=== PATIENT | male | born 1950 | race Caucasian/White ===

== ENCOUNTER → 2024-07-19 12:22 | Outpatient (REF) | payer OTHER, SELFPAY | LOC: HWRCS 12:22 | PROVIDERS: ATTENDING PHYSICIAN Internal Medicine Cardiovascular Disease; FAMILY PHYSICIAN Family Medicine | DX: Z95.5 Presence of coronary angioplasty implant and graft (principal); I25.10 Atherosclerotic heart disease of native coronary artery without angina pectoris | CPT/HCPCS: 93306 ==

== ENCOUNTER → 2024-10-18 11:15 | Outpatient (REF) | payer OTHER, SELFPAY | LOC: RAD 11:15 | PROVIDERS: ATTENDING PHYSICIAN Family Medicine | DX: K43.2 Incisional hernia without obstruction or gangrene (principal) | CPT/HCPCS: 76700 ==

== ENCOUNTER 2024-11-06 12:55 | Outpatient (RCR) | payer OTHER, SELFPAY | END 2024-11-06 23:59 | disposition home or self-care (01) | LOC: RPT 12:55 | PROVIDERS: ATTENDING PHYSICIAN Family Medicine | DX: M25.511 Pain in right shoulder (principal); M54.12 Radiculopathy, cervical region; Z73.6 Limitation of activities due to disability; M62.81 Muscle weakness (generalized); M79.601 Pain in right arm; G89.29 Other chronic pain | CPT/HCPCS: 97010; 97110; 97140; 97162; 97535 ==

== ENCOUNTER 2024-11-25 13:05 | Outpatient (RCR) | payer OTHER, SELFPAY | END 2024-11-25 23:59 | disposition home or self-care (01) | LOC: RPT 13:05 | PROVIDERS: ATTENDING PHYSICIAN Family Medicine | DX: M25.511 Pain in right shoulder (principal); M54.12 Radiculopathy, cervical region; Z73.6 Limitation of activities due to disability; M62.81 Muscle weakness (generalized); M79.601 Pain in right arm; G89.29 Other chronic pain | CPT/HCPCS: 97010; 97110; 97140 ==

== ENCOUNTER → 2024-12-27 09:01 | Outpatient (REF) | payer OTHER, SELFPAY ==
[2024-12-27 09:54] LABS: % Basophils 1.1 % (0-2); % Eosinophils 5.2 % (0-6); % Immature Granulocytes 0.7 % (0-0.5); % Monocytes 8.9 % (1.7-9.3); % Neutrophils 62.1 % (42.2-75.2); Absolute Basophils 0.1 10^3/uL (0-0.2); Absolute Eosinophils 0.2 10^3/uL (0-0.7); Absolute Monocytes 0.4 10^3/uL (0.1-0.6); Absolute Neutrophils 2.9 10^3/uL (1.4-6.5); Hematocrit 44.4 % (39.0-52.0); Hemoglobin 14.6 g/dL (13.0-18.0); Mean Corp Hgb Conc. 32.9 g/dL (33.0-37.0); Mean Corpuscular Hgb 29.4 pg (27.0-31.0); Mean Corpuscular Volume 89.3 fL (80.0-94.0); Mean Platelet Volume 9.5 fL (7.4-10.4); Nucleated Red Blood Cells % 0 % (-); Platelet Count 190 10^3/uL (130-400); Red Blood Cell Count 4.97 10^6/uL (4.70-6.10); Red Cell Dist. Width 13.4 % (11.5-14.5); White Blood Cell Count 4.6 10^3/uL (4.8-10.8)
[2024-12-27 10:21] LABS: Blood Urea Nitrogen 23 mg/dl (9-20); Calcium 9.7 mg/dl (8.4-10.2); Carbon Dioxide 24 mmol/L (22-30); Chloride 110 mmol/L (98-107); Glucose 161 mg/dl (70-99); Potassium 4.8 mmol/L (3.5-5.1); Sodium 144 mmol/L (135-145); eGFR > 60.00
== END ==
LOC: REG 09:01
PROVIDERS: ATTENDING PHYSICIAN Surgery; FAMILY PHYSICIAN Family Medicine
DX: K43.2 Incisional hernia without obstruction or gangrene (principal); Z01.812 Encounter for preprocedural laboratory examination
CPT/HCPCS: 36415; 80048; 85025

== ENCOUNTER → 2024-12-31 12:46 | Outpatient (REF) | payer OTHER, SELFPAY | LOC: RAD 12:46 | PROVIDERS: ATTENDING PHYSICIAN Surgery; FAMILY PHYSICIAN Family Medicine | DX: K43.2 Incisional hernia without obstruction or gangrene (principal) | CPT/HCPCS: 74177; Q9967 ==

== ENCOUNTER 2025-01-24 06:33 | Day surgery (SDC) | payer OTHER, SELFPAY ==
[2025-01-06 14:05] VITALS: BMI 24.2
--- NOTE | 2025-01-06 16:03 | PTCARENOTE ---
Abnormal ECG done 01/06/[address] Deleon, no further intervention requested.
[2025-01-24] VITALS (14 sets, daily range): BP systolic 130–163; BP diastolic 62–83; BMI 24.2
[2025-01-24 11:54] LABS: Glucose - Point of Care 191 mg/dl (70-99)
[2025-01-24] MEDS: TYLENOL 1000 MG PO (12:06)
[2025-01-24] MEDS: NORMOSOL-R/PLASMALYTE-A 1000 IV ×2 (12:06→21:22)
[2025-01-24 14:08] LABS: Glucose - Point of Care 148 mg/dl (70-99)
--- NOTE | 2025-01-24 16:47 | W.IMMPOSTOP ---
Surgical Immed Post Op Note
-
Primary Surgeon: Lucretia
Assisting Surgeon: NASREEN Pérez
Pre-op Diagnosis: Ventral incisional hernia
Post-op Diagnosis: Ventral incisional hernia
Procedure Performed: Robotic ventral incisional hernia repair with mesh, lysis of adhesions
Anesthesia Type: General
Specimen / Cultures: None
Estimated Blood Loss: 3 cc
Complications: None
Operative Findings:
1. 4 cm incisional hernia at ostomy site, omental adhesions lysed to clear defect
2. Primary closure with #1 PDS Stratafix symmetric
3. Lateral pre-peritoneal pocket providing 50% coverage of mesh
4. [address] IPOM mesh, secured with 2-0 PDS Stratafix
[2025-01-24 16:54] LABS: Glucose - Point of Care 181 mg/dl (70-99)
[2025-01-24] MEDS: MORPHINE SULFATE 1 MG IV (18:23)
[2025-01-24] MEDS: TYLENOL 650 MG PO (21:21)
[2025-01-24] MEDS: COREG 12.5 MG PO (21:21)
[2025-01-24 22:29] LABS: Glucose - Point of Care 272 mg/dl (70-99)
[2025-01-25] MEDS: TYLENOL PO ×2 (00:15→04:50)
[2025-01-25 03:04] VITALS: BP 138/76
[2025-01-25] MEDS: TORADOL 10 MG IV (05:22)
[2025-01-25 06:48] LABS: Hematocrit 39.6 % (39.0-52.0); Hemoglobin 13.7 g/dL (13.0-18.0); Mean Corp Hgb Conc. 34.6 g/dL (33.0-37.0); Mean Corpuscular Volume 86.7 fL (80.0-94.0); Platelet Count 157 10^3/uL (130-400); Red Cell Dist. Width 13.2 % (11.5-14.5)
[2025-01-25 07:25] VITALS: BP 125/69
[2025-01-25 07:51] LABS: Blood Urea Nitrogen 28 mg/dl (9-20); Calcium 8.4 mg/dl (8.4-10.2); Carbon Dioxide 19 mmol/L (22-30); Chloride 105 mmol/L (98-107); Estimated Creatinine Clearance 68 ml/min; Glucose 330 mg/dl (70-99); Potassium 4.6 mmol/L (3.5-5.1); Sodium 136 mmol/L (135-145); eGFR > 60.00
[2025-01-25 08:00] LABS: Glucose - Point of Care 338 mg/dl (70-99)
[2025-01-25] MEDS: NORMOSOL-R/PLASMALYTE-A 1000 IV (08:27)
[2025-01-25] MEDS: COREG 12.5 MG PO (08:27)
[2025-01-25] MEDS: ZESTRIL 20 MG PO (08:27)
[2025-01-25] MEDS: NOVOLOG FLEXPEN-MODERATE RESISTANCE 7 UNITS SC (08:28)
[2025-01-25] MEDS: TYLENOL 650 MG PO ×2 (08:28→12:07)
[2025-01-25] MEDS: PAXIL 20 MG PO (08:28)
[2025-01-25] MEDS: CRESTOR 20 MG PO (08:28)
[2025-01-25 08:51] LABS: Glycohemoglobin (HgbA1c) 7.4 % (4.0-5.6)
[2025-01-25] MEDS: LANTUS 0.8 UNITS SC (10:04)
[2025-01-25 11:25] VITALS: BP 121/66
[2025-01-25 12:01] LABS: Glucose - Point of Care 281 mg/dl (70-99)
[2025-01-25] MEDS: NOVOLOG FLEXPEN-MODERATE RESISTANCE 5 UNITS SC (12:08)
--- NOTE | 2025-01-25 13:01 | CM ---
Initial assessment completed with patient who lives with his significant other in a 1st floor apartment with no steps to enter. 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 Has a glucometer in the home. No in-home services. Was in
[employer]. Does have a HC-POA. PCP is Dr. Be Turner and Pharmacy is [facility] [address] in [place]. PATEL explained and signed. Discharge POC: Home with no needs.
[2025-01-25] MEDS: NORMOSOL-R/PLASMALYTE-A IV (13:59)
--- NOTE | 2025-01-25 14:15 | W.PN.GS2 ---
Today's Communication / Plan
-
Dispo planning
Assessment / Plan
-
74 yo male with a h/o DM presenting for robotic ventral incisional hernia repair with mesh, lysis of adhesions
AFVSS
Hyperglycemia post operatively, improved this afternoon s/p Lantus and SSI administration
Pain well managed, tolerating diet
Plan:
Diabetic diet as tolerated
C/W home diabetic regimen
Analgesics scheduled and prn
OOB/Ambulate
ABD binder for comfort
Dispo planning
Subjective Data
-
Date of Service: January 25, 2025
Pt seen and examined at bedside with Dr. Siegle. OOB to chair. Pain well controlled. Denies n/v. Tolerating diet.
Objective Data
-
Intake and Output
01/24/25 01/25/25 01/26/25
06:59 06:59 06:59
Intake Total 480 / 480 240 / 240
Output Total 950 / 950
Balance 480 / 480 -710 / -710
Intake:
Oral fluids 480 / 480 240 / 240
Output:
Urine, Voided 950 / 950
Other:
Number of approximated MODERATE 2
amounts of urine
Vital Signs
Temp Pulse Resp BP Pulse Ox
98.1 F 63 18 121/66 96
01/25/25 11:25 01/25/25 11:25 01/25/25 11:25 01/25/25 11:25 01/25/25 11:25
Lab Results
01/25/25 05:19
01/25/25 05:19
Calcium 8.4 mg/dl (8.4-10.2) 01/25/25 05:19
Physical Exam
-
NAD
ABD soft, some incisional tenderness, ND
Incisions well approximated with intact glue, binder in place
Patient has a duncan catheter: No
Patient has a central line: No
--- NOTE | 2025-01-25 14:18 | W.DS.TRANS ---
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
-
Discharge Instructions:
Discharge Diagnosis/Procedures Robotic ventral incisional hernia repair with
mesh
Diet Diabetic, Carb Controlled
Additional Diets Follow your blood sugars closely
Activity No strenuous activity
Additional Activity No heavy lifting (>20 lbs) or strenuous
activities for 4 weeks postoperatively
Driving Restrictions No driving if too sore or taking narcotics
Bathing Restrictions OK to Shower
Wound Care Keep incisions clean and dry. Glue will flake
off in 2 to 3 weeks. Stitches will dissolve.
Use ice to the abdomen to reduce any bruising or
swelling. Wear binder as needed for comfort/
support when out of bed
Instructions:
Stand-Alone Forms:
Changes to Home Medications: No
Discharge Medications:
DC Medications w/original date entered in [facility]
aspirin 81 mg tablet,delayed release 81 mg PO DAILY 01/17/25
carvedilol 12.5 mg tablet 12.5 mg PO BID 01/17/25
empagliflozin 12.5 mg-metformin ER 1,000 mg tablet,extended rel 24 hr (Synjardy XR) 1 tab PO DAILY 01/17/25
fenofibrate nanocrystallized 48 mg tablet 48 mg PO HS 01/17/25
insulin glargine U-300 conc 300 unit/mL (3 mL) subcutaneous pen (Toujeo Max U-300 SoloStar) 100 unit SC PRN PRN HYPERGLYCEMIA 01/17/25
lisinopril 20 mg tablet 20 mg PO DAILY 01/17/25
multivitamin 1 tab PO DAILY 01/17/25
paroxetine HCl 20 mg tablet 20 mg PO DAILY 01/17/25
prasugrel HCl 10 mg tablet 10 mg PO DAILY 01/17/25
Held on 01/24/25. Instructions: Resume on 01/27/25.
rosuvastatin 20 mg tablet 20 mg PO DAILY 01/17/25
semaglutide 1 mg/dose (4 mg/3 mL) subcutaneous pen injector (Ozempic) 1 mg SC QWEEK 01/17/25
Held on 01/24/25. Instructions: Resume on 02/07/25.
acetaminophen 325 mg tablet 650 mg (2 x 325 mg) PO Q4HPRN PRN mild pain #1 tab 01/24/25
oxycodone 5 mg tablet 5 mg PO Q4HPRN PRN breakthrough/severe pain #15 tabs 01/24/25
Home Medication Changes
Pending Results: No
--- NOTE | 2025-01-25 15:45 | CM ---
Patient has been medically cleared for discharge to home with no additional skilled services. Patient arranged for transport home.
== END 2025-01-25 15:08 | disposition home or self-care (01) ==
LOC: SDS 06:33
PROVIDERS: ATTENDING PHYSICIAN Surgery; FAMILY PHYSICIAN Family Medicine
DX: K43.2 Incisional hernia without obstruction or gangrene (principal)
CPT/HCPCS: 49593; 36415; 80048; 82962; 83036; 85027; 93005; C1713

== ENCOUNTER → 2025-04-15 12:59 | Outpatient (REF) | payer OTHER, SELFPAY | LOC: RAD 12:59 | PROVIDERS: ATTENDING PHYSICIAN Family Medicine | DX: M25.511 Pain in right shoulder (principal); G89.29 Other chronic pain | CPT/HCPCS: 73030 ==

== ENCOUNTER → 2025-04-17 09:50 | Outpatient (REF) | payer OTHER, SELFPAY ==
[2025-04-17 10:50] LABS: Hematocrit 45.3 % (39.0-52.0); Hemoglobin 14.9 g/dL (13.0-18.0); Mean Corp Hgb Conc. 32.9 g/dL (33.0-37.0); Mean Corpuscular Volume 91.0 fL (80.0-94.0); Nucleated Red Blood Cells % 0 % (-); Platelet Count 196 10^3/uL (130-400); Red Cell Dist. Width 13.6 % (11.5-14.5)
[2025-04-17 10:51] LABS: Urine Character Clear (Clear)
[2025-04-17 11:21] LABS: ALT (SGPT) 21 U/L (0-50); AST (SGOT) 22 U/L (17-59); Albumin 4.3 g/dl (3.5-5.0); Alkaline Phosphatase 62 U/L (38-126); Blood Urea Nitrogen 19 mg/dl (9-20); Calcium 9.8 mg/dl (8.4-10.2); Carbon Dioxide 27 mmol/L (22-30); Chloride 105 mmol/L (98-107); Glucose 219 mg/dl (70-99); HDL Cholesterol 37 mg/dl; LDL Cholesterol, Calculated 68 mg/dl; Potassium 5.3 mmol/L (3.5-5.1); Sodium 139 mmol/L (135-145); Total Protein 7.1 g/dl (6.3-8.2); Very Low Density Lipoprotein 49 mg/dl (0-30); eGFR > 60.00
[2025-04-17 11:36] LABS: Microalb - Urine Creatinine 58.300 mg/dl
[2025-04-17 11:48] LABS: Microalbumin, Random Urine 0.8 mg/dl (0.6-1.7); PSA, Total - Screen 1.33 ng/ml (0.0-4.0); TSH 2.74 uIU/ml (0.47-4.68)
[2025-04-17 12:42] LABS: Glycohemoglobin (HgbA1c) 8.9 % (4.0-5.6)
== END ==
LOC: REG 09:50
PROVIDERS: ATTENDING PHYSICIAN Family Medicine
DX: E11.8 Type 2 diabetes mellitus with unspecified complications (principal); E78.5 Hyperlipidemia, unspecified; Z12.5 Encounter for screening for malignant neoplasm of prostate
CPT/HCPCS: 36415; 80053; 80061; 81003; 82043; 82570; 83036; 84443; 85025; G0103

== ENCOUNTER → 2025-06-10 10:41 | Outpatient (REF) | payer OTHER, SELFPAY ==
[2025-06-10 11:44] LABS: Glycohemoglobin (HgbA1c) 8.7 % (4.0-5.9)
[2025-06-10 12:03] LABS: ALT (SGPT) 18 U/L (0-50); AST (SGOT) 19 U/L (17-59); Albumin 4.4 g/dl (3.5-5.0); Alkaline Phosphatase 93 U/L (38-126); Blood Urea Nitrogen 22 mg/dl (9-20); Calcium 9.5 mg/dl (8.4-10.2); Carbon Dioxide 29 mmol/L (22-30); Chloride 102 mmol/L (98-107); Glucose 238 mg/dl (70-99); HDL Cholesterol 37 mg/dl; LDL Cholesterol, Calculated 38 mg/dl; Magnesium 1.8 mg/dl (1.6-2.3); Potassium 4.7 mmol/L (3.5-5.1); Sodium 138 mmol/L (135-145); Total Protein 7.4 g/dl (6.3-8.2); Very Low Density Lipoprotein 36 mg/dl (0-30); eGFR > 60.00
[2025-06-10 12:13] LABS: Vitamin D, 25-OH*** 41.4 ng/mL (30-80)
[2025-06-10 13:01] LABS: Folate 12.9 ng/ml (2.76-20); Vitamin B12 294 pg/ml (239-931)
== END ==
LOC: REG 10:41
PROVIDERS: ATTENDING PHYSICIAN Family Medicine
DX: E11.8 Type 2 diabetes mellitus with unspecified complications (principal); E78.5 Hyperlipidemia, unspecified; R41.3 Other amnesia
CPT/HCPCS: 36415; 80053; 80061; 82306; 82607; 82746; 83036; 83735